=== PATIENT | female | born 1985 | race Caucasian/White ===

== ENCOUNTER 2021-09-18 19:27 | Emergency (ER) | payer BC, SELFPAY ==
--- NOTE | 2021-09-18 | DI.CT_ITS ---
Exam(s) CT CHEST/ABD/PEL W CT THORACIC LUMBAR SPINE REC EXAM: CT CHEST/ABD/PEL W TECHNIQUE: CT examination of the chest, abdomen, and pelvis was performed with bolus infusion of 100 cc of Omnipaque 350. Additional bony reconstructions of the thoracic and lumbar spine were also obt ained. COMPARISON: CT CT THORACIC LUMBAR SPINE REC from 09/18/2021 FINDINGS: There is no evidence of a thoracic vascular injury. The lungs are clear. No pneumothorax or pleural effusion. No mediastinal hematoma. No adenopathy in the chest. Tracheobronchial tree appears intact. The liver, spleen, and pancreas appear normal. Gallbladder and bile ducts are normal. Adrenals and kidneys are unremarkable. No evidence of urinary tract injury or obstruction. No abdominal or pelvic vascular injury seen. No abdominal or pelvic adenopathy. No significant abdomi nal wall hernia or hematoma. No evidence of bowel injury. No fracture identified in the region surveyed. IMPRESSION: No evidence of acute injury of the chest, abdomen, or pelvis. RADIATION DOSE DELIVERED: Total DLP Total DLP Total DLP !Error CTDIvol DATA REPOSITORY: All CT scans at this facility are submitted to the National Radiology Data Registry (NRDR) Dose Index Registry (DIR) with the [employer] ([employer]). RADIATION OPTIMIZATION: All CT scans at this facility use at least one of these dose optimization te chniques: automated exposure control; mA and/or kV adjustment per patient size (includes targeted exa ms where dose is matched to clinical indication); or iterative reconstruction.
[2021-09-18 20:03] VITALS: BP 117/69; PULSE 63; RESP 18; TEMP 37.4; O2SAT 100
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
[2021-09-18] MEDS: MORPHine 10 MG/ML VIAL 4 MG IVP (21:33)
[2021-09-18] MEDS: Ondansetron 4 MG/2 ML VIAL IVP (21:34)
[2021-09-18] MEDS: Normal Saline 1,000 ML 1000 ML IV (21:34)
[2021-09-18 21:37] LABS: Abs Immature Grans 0.03 10^3/uL (0.0-0.06); Absolute Basophil Count 0.05 10^3/uL (0.0-0.2); Absolute Eosinophil Count 0.09 10^3/uL (0.0-0.7); Absolute Lymphocyte Count 2.73 10^3/uL (1.2-3.4); Absolute Monocyte Count 1.32 10^3/uL (0.1-0.8); Absolute Neutrophil Count 5.94 10^3/uL (1.2-6.7); Basophils % 0.5; Eosinophils % 0.9; HCT 35.5 % (36.0-46.0); HGB 11.7 g/dL (11.2-15.7); Immature Grans % 0.3; Lymphocytes % 26.9; MCH 31.5 pg (27.0-33.0); MCV 96 fL (80-95); MPV 11.7 fL (8.0-11.0); Neutrophils % 58.4; Platelet Count 198 10^3/uL (130-400); RBC 3.71 10^6/uL (3.93-5.22); RDW 12.4 % (11.7-14.6); RDW-SD 43.5 fL; WBC 10.16 10^3/uL (4.4-10.8)
[2021-09-18 21:58] LABS: ALT 25 U/L (14-59); AST 19 U/L (15-37); Albumin 3.5 g/dL (3.4-5.0); Alkaline Phosphatase 65 U/L (46-116); Anion Gap 6.7 mmol/L (3-11); BUN 18 mg/dL (7-18); Bilirubin, Total 0.4 mg/dL (0.2-1.0); CO2 26.3 mmol/L (21.0-32.0); CREATININE 0.9 mg/dL (0.55-1.02); Calcium 8.6 mg/dL (8.5-10.1); Chloride 107 mmol/L (98-107); Glucose 88 mg/dL (74-106); Lipase 63 U/L (73-393); Potassium 3.6 mmol/L (3.5-5.1); Sodium 140 mmol/L (136-145); Total Protein 6.8 g/dL (6.4-8.2)
[2021-09-18] MEDS: Omnipaque 350 MG/ML 100 ML BTL IJ (22:18)
[2021-09-18] MEDS: Normal Saline Flush 10 ML SYR IVP (22:19)
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
[2021-09-18] MEDS: HYDROmorphone 2 MG/ML VIAL 1 MG IVP (22:52)
[2021-09-18 23:40] VITALS: BP 100/58; PULSE 58; TEMP 36; O2SAT 99
[2021-09-18] MEDS: Lidocaine 5% Patch 1 PATCH TP (23:45)
== END 2021-09-18 23:48 | disposition home or self-care (01) ==
PROVIDERS: Emergency Provider Physician Assistant
DX: S40.811A Abrasion of right upper arm, initial encounter (principal); T14.8XXA Other injury of unspecified body region, initial encounter; R91.1 Solitary pulmonary nodule; R07.81 Pleurodynia; R10.2 Pelvic and perineal pain; M25.551 Pain in right hip; V18.0XXA Pedal cycle driver injured in noncollision transport accident in nontraffic accident, initial encounter; Y93.55 Activity, bike riding; Y92.828 Other wilderness area as the place of occurrence of the external cause
CPT/HCPCS: 74177; 80053; 83690; 96361; 96374; 96375; 99285; 71260; 83735; 85025; 99284; J2270; J2405; J3490